=== PATIENT | male | born 2005 | race Caucasian/White ===

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

== ENCOUNTER 2023-07-16 21:36 | Emergency (ER) | payer MEDICAID, SELFPAY ==
[2023-07-16 21:36] VITALS: BP 137/79; PULSE 86; RESP 18; TEMP 36.7; O2SAT 97; BMI 19.4
== END 2023-07-16 21:50 | disposition left against medical advice (07) ==
LOC: ED 22:00
PROVIDERS: PCP Pediatrics Pediatric Gastroenterology
DX: Z53.21 Procedure and treatment not carried out due to patient leaving prior to being seen by health care provider (principal)

== ENCOUNTER 2023-07-16 23:01 | Emergency (ER) | payer MEDICAID, SELFPAY ==
[2023-07-16 23:01] VITALS: BP 132/86; PULSE 71; RESP 16; TEMP 36.2; O2SAT 98; BMI 19.4
[2023-07-16 23:04] VITALS: BP 132/86; PULSE 71; RESP 16; TEMP 36.2; O2SAT 98
--- NOTE | 2023-07-16 23:20 | EX.ED.DYSGE1 ---
HPI History of Present Illness Chief Complaint: Bite Informant: patient Onset/Context/Timing Onset: Today Narrative Narrative: Patient presents with a painful red lesion to the back of his right leg that he believes may be secondary to a spider bite. He noticed it today but does not remember being bit. No fever or chills. He states it is painful when he tries to walk. [facility] Medical History Primary sclerosing cholangitis Depression Liver cirrhosis Thrombocythemia Home Medications ?Medication ?Instructions ?Recorded ?Last Taken ?Type cephalexin 500 mg capsule 500 mg PO Q6 #40 CAPSULES 07/16/23 Unknown Rx sulfamethoxazole 800 1 tab PO BID #20 tabs 07/16/23 Unknown Rx mg-trimethoprim 160 mg tablet (Bactrim DS) Allergy/AdvReac Type Severity Reaction Status Date / Time No Known Allergies Allergy Verified 07/16/23 23:02 Surgical History Hx of elbow surgery Social History Smoking Status: Never smoker ROS ROS ED Constitutional Constitutional ED: Denies chills or fever(s) Eyes Eyes: Denies change in vision Cardiovascular Cardiovascular: Denies chest pain Respiratory/Chest Respiratory/Chest: Denies cough or dyspnea Gastrointestinal Gastrointestinal: Denies abdominal pain Musculoskeletal Musculoskeletal: Reports arthralgias Integumentary Reports rash Neurologic Neurologic: Denies paresthesias or weakness EXAM Physical Exam Const Vital Signs: 07/16/23 23:01 07/16/23 23:04 07/16/23 23:28 Temperature 97.1 F L 97.1 F L 97.1 F L Temperature Source Temporal Temporal Pulse Rate 71 71 70 Respiratory Rate 16 16 Blood Pressure 132/86 H 132/86 H 134/74 H Blood Pressure Mean 101 101 94 Pulse Ox 98 98 98 Oxygen Delivery Method Room Air Room Air Positive well nourished and well developed General Appearance ED: well developed HEENT Reports moist mucous membranes Chest Wall inspection of chest normal and palpation of chest normal Resp normal respiratory effort and clear to auscultation bilaterally Cardio regular rate and regular rhythm Extremity Extremity Narrative: Patient does have multiple abrasions noted to his lower extremities. On the posterior aspect of the right distal calf there is a erythematous lesion approximately 2 cm in diameter that is painful to touch. With palpation there is no fluctuance or induration under the skin. There is no spontaneous drainage. There is no lymphangitic streaking. Calf itself is soft and nontender. Neuro oriented x3 and no sensory deficits noted Motor Exam: strength 5/5 throughout MDM MDM MDM Narrative Medical decision making narrative: Area of painful erythema is outlined with surgical marker. Patient be started on Bactrim and Keflex and wound care discussed. Patient will monitor for worsening of infection. Return instructions given. Discharge Plan Triage Chief Complaint: Bite ED Provider: Jenna Novoa Dx/Rx/DC Orders Clinical Impression: Cellulitis Instructions: ED Cellulitis Prescriptions: New sulfamethoxazole-trimethoprim [Bactrim DS] 800-160 mg tablet 1 tab PO BID Qty: 20 0RF cephalexin 500 mg capsule 500 mg PO Q6 Qty: 40 0RF Primary Care Provider: VALERIA DIAS Referrals: VALERIA DIAS MD [Primary Care Provider] - 1 Week Print Language: Hebrew Disposition Disposition: Home, Self Care Discharge Date/Time: 07/16/23 23:29
[2023-07-16] MEDS: Cephalexin 250 MG Capsule 500 MG PO (23:26)
[2023-07-16] MEDS: Smz/Tmp Ds Tablet 1 TABLET PO (23:27)
[2023-07-16 23:28] VITALS: BP 134/74; PULSE 70; RESP 16; TEMP 36.2; O2SAT 98
== END 2023-07-16 23:29 | disposition home or self-care (01) ==
PROVIDERS: Emergency Provider Emergency Medicine; PCP Pediatrics Pediatric Gastroenterology; Visit Provider Emergency Medicine
DX: L03.115 Cellulitis of right lower limb (principal)
CPT/HCPCS: 99283

== ENCOUNTER 2023-07-18 21:00 | Emergency (ER) | payer MEDICAID, SELFPAY ==
[2023-07-18 21:01] VITALS: BP 152/96; PULSE 92; RESP 16; TEMP 36.8; O2SAT 99; BMI 19.7
--- NOTE | 2023-07-18 21:07 | EDS_ITS ---
HPI <AQUILINO Ferguson - Last Filed: 07/18/23 22:00> History of Present Illness Chief Complaint: Bite Narrative Narrative: Patient presents with a painful red bump on the back of his right leg he noted on 07/15 that he thinks may be from a spider bite. He states he worked outside and was in a garden area that had lots of spiders. On the day it started he was seen in the ED and prescribed Bactrim and Keflex. He states he was just able to pick it up today and has taken 1 Bactrim tablet and 2 doses of Keflex which is every 6 hours. PFSH <AQUILINO Ferguson - Last Filed: 07/18/23 22:00> [facility] Medical History Primary sclerosing cholangitis Depression Liver cirrhosis Thrombocythemia Home Medications ?Medication ?Instructions ?Recorded ?Last Taken ?Type cephalexin 500 mg capsule 500 mg PO Q6 #40 CAPSULES 07/16/23 Unknown Rx sulfamethoxazole 800 1 tab PO BID #20 tabs 07/16/23 Unknown Rx mg-trimethoprim 160 mg tablet (Bactrim DS) Allergy/AdvReac Type Severity Reaction Status Date / Time No Known Allergies Allergy Verified 07/18/23 21:03 Surgical History Hx of elbow surgery Social History Smoking Status: Never smoker ROS <AQUILINO Ferguson - Last Filed: 07/18/23 22:00> ROS ED ROS Narrative Constitutional: Negative for fever, chills, malaise. GI: Negative for nausea, vomiting. Neuro: Negative for motor/sensory dysfunction. Skin: Positive for erythema. EXAM <AQUILINO Ferguson Last Filed: 07/18/23 22:00> Physical Exam Narrative Exam Narrative: CONST: Patient sitting in no acute distress. EYES: Normal inspection. NECK: Normal inspection. RESP: No respiratory distress, CTAB. CVS: Regular rate and rhythm, no murmur, no gallop. SKIN: Right lower posterior calf has outlined area of central dark erythema from prior visit is approximately 2 cm. Erythematous warm area spreads outside the marked line approximately 6 cm area diameter. No fluctuance or crepitus, no drainage, no lymphangitic streaking. Calf is soft and nontender. Full range of motion of all lower extremity joints, 2+ DP pulse. EXTREMITIES: Normal appearance, no pedal edema. NEURO: Alert and answering questions appropriately. PSYCH: Normal affect. Const Vital Signs: 07/18/23 21:01 Temperature 98.2 F Temperature Source Temporal Pulse Rate 92 Respiratory Rate 16 Blood Pressure 152/96 H Blood Pressure Mean 114 Pulse Ox 99 Oxygen Delivery Method Room Air <Dr. Emerson Martinez DO - Last Filed: 07/18/23 21:57> Physical Exam Const Vital Signs: 07/18/23 21:01 Temperature 98.2 F Temperature Source Temporal Pulse Rate 92 Respiratory Rate 16 Blood Pressure 152/96 H Blood Pressure Mean 114 Pulse Ox 99 Oxygen Delivery Method Room Air [facility] <AQUILINO Ferguson - Last Filed: 07/18/23 22:00> [facility] Narrative Medical decision making narrative: Patient has right posterior calf cellulitis. It has spread outside the demarcated line drawn 2 days ago but he only started antibiotics this morning with a single dose of Bactrim and 2 doses of Keflex. He otherwise looks well, is afebrile and hemodynamically stable, has no evidence of abscess on exam or lymphangitic streaking. Extremities neurovascular intact. I think he is not taking oral antibiotics long enough to be considered a failure of treatment. I discussed compliance with medication and return precautions and he was discharged in stable condition. <Dr. Emerson Martinez DO - Last Filed: 07/18/23 21:57> [facility] Treatment and Re-Evaluation :: I have personally performed a face to face assessment of the patient and have reviewed the CHIQUITA Note. I performed a substantive portion of the visit including all aspects of the following. My rodriguez findings include: History is 18-year-old male presenting with erythema 6 pain of the right lower lateral posterior leg. Patient states she he thought he may have been bit by a spider a few days ago. He was seen in the emergency department prescribed Bactrim and Keflex. He has not taken them regularly and has only had a couple of doses. No reported fevers. Exam is there is a area of erythema posterior lateral lower right leg. There is a central area what appears to be some acute ecchymosis. Difficult to say exactly what started this process is clear he has a cellulitis. The area of erythema is about 6 cm elliptical. Medical Decison Making I think the patient can be discharged home. I do recommend taking his antibiotics as directed every 6 hours and twice daily. We talked about how antibiotics works he is comfortable with this. Would recommend PCP follow-up if not improving. Discharge Plan Triage Chief Complaint: Bite ED Midlevel Provider: Pau Flowers ED Provider: Emerson Martinez Dx/Rx/DC Orders Clinical Impression: Cellulitis of right leg Prescriptions: No Action sulfamethoxazole-trimethoprim [Bactrim DS] 800-160 mg tablet 1 tab PO BID Qty: 20 0RF cephalexin 500 mg capsule 500 mg PO Q6 Qty: 40 0RF Primary Care Provider: VALERIA DIAS Referrals: VALERIA DIAS MD [Primary Care Provider] - 3-5 Days if not improving Print Language: Danish Disposition Disposition: Home, Self Care
[2023-07-18 22:02] VITALS: BP 132/71; PULSE 79; RESP 16; TEMP 36.8; O2SAT 98
[2023-07-18 22:14] VITALS: BP 132/71; PULSE 72; RESP 16; TEMP 36.8; O2SAT 98
== END 2023-07-18 22:15 | disposition home or self-care (01) ==
PROVIDERS: Emergency Provider Emergency Medicine; PCP Pediatrics Pediatric Gastroenterology; Visit Provider Emergency Medicine
DX: L03.115 Cellulitis of right lower limb (principal)
CPT/HCPCS: 99282

== ENCOUNTER 2023-10-15 18:00 | Emergency (ER) | payer MEDICAID, SELFPAY ==
[2023-10-15 18:01] VITALS: BP 122/82; PULSE 94; RESP 18; TEMP 36.6; O2SAT 100; BMI 19.1
--- NOTE | 2023-10-15 18:27 | EDS_ITS ---
HPI History of Present Illness HPI Narrative: 18-year-old male history of cirrhosis and thrombocytopenia. He had congenital cirrhosis. Was using a hedge tremor and he cut his left lower waggoner just above the ankle. This occurred less than an hour ago. His tetanus is up-to-date. Denies any other complaints. 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 Cut his left lower leg above the ankle with a hedge tremor less than an hour ago. Tetanus Immunization: <5 years Prior similar symptoms: No Recent Illness/Hospitalization: No PFSH PFSH Medical History Primary sclerosing cholangitis Depression Liver cirrhosis Thrombocythemia Home Medications ?Medication ?Instructions ?Recorded ?Last Taken ?Type cephalexin 500 mg capsule 500 mg PO Q6 #40 CAPSULES 07/16/23 Unknown Rx sulfamethoxazole 800 1 tab PO BID #20 tabs 07/16/23 Unknown Rx mg-trimethoprim 160 mg tablet (Bactrim DS) Allergy/AdvReac Type Severity Reaction Status Date / Time No Known Allergies Allergy Verified 10/15/23 18:01 Surgical History Hx of elbow surgery Social History Smoking Status: Never smoker ROS ROS ED ROS Narrative Denies recent illness. Review of Systems ROS Unobtainable: Denies due to encephalopathy Constitutional Constitutional ED: Denies chills or fever(s) Eyes Eyes: Denies blurry vision ENT ENT ED: Denies ear pain Cardiovascular Cardiovascular: Denies chest pain Respiratory/Chest Respiratory/Chest: Denies cough Gastrointestinal Gastrointestinal: Denies abdominal pain Genitourinary Genitourinary ED: Denies dysuria Musculoskeletal Musculoskeletal: Denies arthralgias Integumentary Denies abscess Neurologic Neurologic: Denies headache(s) Psychiatric Psychiatric: Denies anxiety Endocrine Endocrinology: Denies polydipsia Hematologic/Lymphatic Hematologic/Lymphatic: Denies lymphadenopathy Allergic/Immunologic Allergic/Immunologic ED: Denies mouth swelling, tongue swelling or urticaria EXAM Physical Exam Narrative Exam Narrative: Well-appearing 18-year-old male. Vital signs stable afebrile. No acute distress. H EENT exam unremarkable. Lungs clear. Heart regular rhythm rate about 90 no murmur. Chest wall and ribs nontender. Abdomen soft nontender. Moving all 4 extremities. Neurovascular intact. Left lower leg anterior waggoner just above the ankle he has a V-shaped laceration that need to be repaired. Involves the skin and subcu tissue. No active bleeding. No pulsatile bleeding. No bony tenderness. Distally he has normal flexion extension and touch sensation of his left foot. Normal range of motion. Const Vital Signs: 10/15/23 18:01 Temperature 97.8 F Temperature Source Temporal Pulse Rate 94 Respiratory Rate 18 Blood Pressure 122/82 H Blood Pressure Mean 95 Pulse Ox 100 Oxygen Delivery Method Room Air Positive well nourished and well developed; Negative for obese, cachectic, contractures or unkempt General Appearance ED: well developed and NAD; Negative for unkempt, cachectic or contractures Nutritional Appearance: Negative for cachectic or obese HEENT Reports moist mucous membranes normocephalic and atraumatic; Negative for trauma or tenderness Eyes PERRL General Eye ED: Negative for other Neck full ROM and supple Thyroid: Negative for tender Lymph Lymphatic: Negative for other Chest Wall inspection of chest normal and palpation of chest normal Chest: Negative for other Resp normal respiratory effort, no retractions and clear to auscultation bilaterally Effort and Inspection: Negative for pain with movement Auscultation: Negative for rales, rhonchi or wheezes Cardio regular rate, regular rhythm, S1 normal heart sound, S2 normal heart sound and no murmurs Rate: Negative for bradycardia or tachycardic Rhythm: Negative for abnormal rhythm Bruits: Negative for other GI non-tender, non-distended and no masses Inspection: Negative for abdominal distention Auscultation: normoactive bowel sounds Palpation: soft; Negative for tender, guarding or rebound tenderness present Back/Spine no CVA tenderness General Back: Negative for CVA tenderness Cervical Spine: Negative for cervical spine tenderness Thoracic Spine / Upper Back: Negative for thoracic spinal tenderness Lumbar Spine / Lower Back: Negative for lumbar spinal tenderness Extremity full ROM; Negative for normal to inspection Extremity Narrative: Left lower leg anterior waggoner just above the ankle V-shaped laceration. No active or pulsatile bleeding. No bony deformity. No foreign body. No signs of infection. Distally left foot neurovascular intact. Will need suture repair. General Extremety ED: Negative for cyanosis or edema General Extremity: Negative for cyanosis or edema Neuro oriented x3, CN's II-XII intact bilaterally and moves all extremities Sensorium / Orientation: alert, oriented to person, oriented to place and orien olivia to time; Negative for orientation impaired, confused or lethargic Motor Exam: strength 5/5 throughout Psych mental status grossly normal Appearance: Negative for unkempt Speech: No other Mood & Affect: Negative for anxious Skin No no wounds Skin Narrative: Laceration left lower leg. Lesions: no lesions Rashes: no rashes Trauma: laceration MDM MDM MDM Narrative Medical decision making narrative: 18-year-old left lower leg laceration will need to be cleaned, explored locally anesthetized and repaired. History & Record Review Discussion w/independent historian: Patient Additional record(s) reviewed:: Prior inpatient record, Prior outpatient record, Prior ED visit and Prior labs Procedures Lacerations Left lower leg laceration repair:: Length: 3 in Depth: Sub Q Shape: V shaped Prep: Shure-Clens Laceration repair: Irrigated, Lidocaine, Local, Skin sutures and Wound explored Suture Information: Ethilon, Simple and 4-0 Comment: Left lower leg anterior V-shaped laceration distal third. Locally anesthetized with lidocaine. Cleaned with Shana maría-Clens. Washed and irrigated with saline. Explored. Closed using 5, 4-0 Ethilon, simple, interrupted sutures. Proper hemostasis and closure obtained. Patient tolerated procedure well. Proper hemostasis and wound closure was obtained. Discharge Plan Triage Chief Complaint: Laceration ED Provider: Bry Mariee Dx/Rx/DC Orders Clinical Impression: Laceration of leg Instructions: ED Laceration, All Closures Prescriptions: No Action sulfamethoxazole-trimethoprim [Bactrim DS] 800-160 mg tablet 1 tab PO BID Qty: 20 0RF cephalexin 500 mg capsule 500 mg PO Q6 Qty: 40 0RF Primary Care Provider: VALERIA DIAS Referrals: VALERIA DIAS MD [Primary Care Provider] - As Needed Activity Restrictions/Additional Instructions: Keep area clean and dry. He can get wet but dried off thoroughly. Do not let it soak in any water. Clean daily with soap and water and apply antibiotic ointment. Watch for any signs of infection such as pus, redness, streaks, swelling, increasing pain or fever if seen return. Stitches out in 10-14 days. Print Language: Ecuadorean Disposition Disposition: Home, Self Care
[2023-10-15] MEDS: Lidocaine 1% (20 ml mdv) 20 ML Vial 10 ML INFILT (18:31)
[2023-10-15 19:31] VITALS: BP 144/85; PULSE 71; RESP 15; TEMP 36.3; O2SAT 98
== END 2023-10-15 19:32 | disposition home or self-care (01) ==
PROVIDERS: Emergency Provider Emergency Medicine; PCP Pediatrics Pediatric Gastroenterology; Visit Provider Emergency Medicine
DX: S81.812A Laceration without foreign body, left lower leg, initial encounter (principal); X58.XXXA Exposure to other specified factors, initial encounter
CPT/HCPCS: 12002; 99285

== ENCOUNTER 2024-01-10 09:19 | Emergency (ER) | payer MEDICAID, SELFPAY ==
[2024-01-10 09:20] VITALS: BP 140/86; PULSE 58; RESP 16; TEMP 37; O2SAT 100; BMI 20.9
[2024-01-10 10:16] LABS: International Normalized Ratio 1.3
[2024-01-10 10:24] LABS: Absolute Neutrophil Count 2.3 X10^3/uL (2.0-7.7); Basophil# 0.03 X10^3/uL; Basophil% 0.8 % (0-1); Eosinophil# 0.11 X10^3/uL; Hematocrit 45.9 % (40-54); Hemoglobin 16.2 g/dL (13.0-16.5); Lymphocyte % 26.9 % (19-41); Mean Corp Hgb Conc 35.3 g/dL (32-36); Mean Corpuscular Hgb 30.2 pg (27.0-32.0); Mean Corpuscular Volume 85.5 fL (80-94); Mean Platelet Vol. 10.5 fl (6.2-12.0); Monocyte# 0.24 X10^3/uL; Monocyte% 6.5 % (0-10); NRBC Flagged by Analyzer 0 % (0-5); Neutrophil # 2.32 X10^3/uL (2.7-7.7); Neutrophil % 62.3 % (47-70); POSITIVE COUNT YES; Platelet Count 61 K/mm3 (150-450); RBC Distribution Width CV 12.5 % (11.6-14.6); RBC Distribution Width SD 38.6 fl (35.1-43.9); Red Blood Count 5.37 M/mm3 (4.6-6.2); White Blood Count 3.7 K/mm3 (4.4-11.0)
[2024-01-10 10:59] LABS: AST(SGOT) 29 U/L (15-37); Alanine Aminotransfer ALT/SGPT 32 U/L (16-61); Albumin, Serum 4.2 g/dL (3.2-5.0); Alkaline Phosphatase 87 U/L (45-117); Anion Gap 5 (5-15); BUN 14 mg/dL (7-18); BUN/Creat Ratio 15.4 RATIO (10-20); Bilirubin, Direct 0.34 mg/dL (0.00-0.30); Calcium,Total 8.8 mg/dL (8.5-10.1); Chloride 110 mmol/L (98-107); Creatinine, Serum 0.91 mg/dL (0.70-1.30); EST Glomerular Filtration Rate 113 mL/min (>60); Est Glom Filt Rate - Afr Amer 136 mL/min (>60); Estimated Creatinine Clearance 117.64 ml/min; Globulin 3.1 g/dL (2.2-4.2); Glucose 94 mg/dL (74-106); Protein, Total 7.3 g/dL (6.4-8.2); Sodium Level 140 mmol/L (136-145)
[2024-01-10 11:20] VITALS: BP 120/82; PULSE 62; RESP 18; TEMP 36.8; O2SAT 99
== END 2024-01-10 11:26 | disposition home or self-care (01) ==
LOC: ED 10:02
PROVIDERS: Emergency Provider Emergency Medicine; PCP Pediatrics Pediatric Gastroenterology; Visit Provider Emergency Medicine
DX: S00.512A Abrasion of oral cavity, initial encounter (principal); D69.6 Thrombocytopenia, unspecified; X58.XXXA Exposure to other specified factors, initial encounter
CPT/HCPCS: 80048; 80076; 85025; 85610; 99283; A4216